=== PATIENT | male | born 1960 | race American Indian/Alaskan Native ===

== ENCOUNTER 2018-05-30 15:35 | Inpatient (IN) | payer OTHER ==
[2018-05-30 20:00] VITALS: BMI 27.4
[2018-05-30] MEDS ORDERED: Promethazine 12.5 mg/10 ml Syrup PO PRN (20:03)
[2018-05-30 21:03] VITALS: RESP 20
[2018-05-30] MEDS: Docusate-Senna 50 mg-8.6 mg Tab PO SCH (21:17)
[2018-05-30] MEDS: Oxycodone/Acetaminophen 5/325 mg Tab PO PRN (21:18)
[2018-05-31] MEDS: Oxycodone/Acetaminophen 5/325 mg Tab PO PRN ×4 (04:11→21:27)
[2018-05-31] MEDS: Enoxaparin 40 mg Syringe SC SCH (10:00)
--- NOTE | 2018-05-31 10:14 | PCM.SURG1 ---
Surgeon's Initial Post Op Note - Surgeon's Notes Surgeon: Michelle Soto MD Flight Kitchen Manager: Gregg Triana PA-C Type of Anesthesia: General Endo Pre-Operative Diagnosis: R hip #1 DJD. #2 synovitis. #3 stiffness/ contracture. #4 MATTHEW Operative Findings: R hip #1 DJD. #2 synovitis. #3 stiffness/contracture. #4 MATTHEW Post-Operative Diagnosis: R hip #1 DJD. #2 synovitis. #3 stiffness/ contracture. #4 MATTHEW Operation Performed: Right hip total hip replacement (jack-lateral approach)
[2018-05-31] MEDS: Docusate-Senna 50 mg-8.6 mg Tab PO SCH (22:04)
[2018-06-01] MEDS: Oxycodone/Acetaminophen 5/325 mg Tab PO PRN ×2 (02:38→08:46)
--- NOTE | 2018-06-01 03:43 | HP ---
Copied To: Haroon Foster MD Attending MD: Haroon Foster MD HISTORY OF PRESENT ILLNESS: The patient is a 58-year-old male with history of osteoarthritis who was admitted to Transitional Care Unit after having right total hip replacement. The patient's postoperative course was uneventful, and he was transferred to transitional care unit at [facility] for deconditioning, physical therapy, and occupational therapy. The patient has been kept on DVT prophylaxis. The patient denied to have any shortness of breath or chest pain at the time of this examination. The patient has the expected pain postoperative for which pain medications have been prescribed. Other review of systems is negative. ALLERGIES: NO KNOWN ALLERGIES. MEDICATIONS: As per MAR reviewed. SOCIAL HISTORY: No history of smoking, ETOH, or substance abuse. FAMILY HISTORY: Noncontributory. PHYSICAL EXAMINATION: GENERAL: The patient is in bed, not in any cardiopulmonary distress. VITAL SIGNS: Blood pressure of 124/73, temperature 98.1, respiratory rate 20, and pulse 92. HEENT: Pupils equal and reactive to light. Normal-appearing mucosa of the conjunctivae, oropharynx, and nasal membrane mucosa. NECK: Supple. No JVD. No carotid bruit. No lymph node. No thyromegaly. CHEST AND LUNGS: Bilateral symmetrical expansion. Good air exchange. No rales, no rhonchi. CARDIOVASCULAR SYSTEM: PMI not localized. S1, S2. No additional sounds. ABDOMEN: Normoactive bowel sounds. No tenderness. No organomegaly. No masses. EXTREMITIES: No cyanosis, no clubbing, no edema. BREAKER UP: Alert, awake, oriented x3. No neurological deficit could be appreciated. ASSESSMENT: 1. Status post right total hip replacement. 2. Osteoarthritis. PLAN: DVT prophylaxis, pain management, physical therapy and occupational therapy. Haroon Foster MD
[2018-06-01 07:39] LABS: ALBUMIN 3.7 g/dL (3.5-5.0); ALT/SGPT 39 U/L (21-72); AST/SGOT 74 U/L (17-59); BLOOD UREA NITROGEN 12 mg/dl (9-20); CALCIUM 9.1 mg/dL (8.4-10.2); GFR AFRICAN-AMERICAN > 60; GFR NON-AFRICAN AMERICAN > 60
[2018-06-01 07:40] LABS: BASO % 0.3 % (0.0-2.0); EOS # 0.3 K/uL (0.0-0.7); EOS % 3.3 % (0.0-4.0); HEMOGLOBIN 10.7 g/dL (12.0-18.0); LYMPH # 1.8 K/uL (1.0-4.3); LYMPH % 21.7 % (20.0-40.0); MEAN CELL VOLUME 88.8 fl (80.0-94.0); MEAN CORPUSCULAR HEMOGLOBIN 30.1 pg (27.0-31.0); MEAN CORPUSCULAR HGB CONC 33.9 g/dL (33.0-37.0); MEAN PLATELET VOLUME 7.6 fl (7.2-11.7); MONO # 0.7 K/uL (0.0-0.8); MONO % 8.9 % (0.0-10.0); NEUT # 5.5 K/uL (1.8-7.0); NEUT % 65.8 % (50.0-75.0); RBC 3.56 Mil/uL (4.40-5.90); RED CELL DISTRIBUTION WIDTH 13.4 % (11.5-14.5); WHITE BLOOD COUNT 8.4 K/uL (4.8-10.8)
[2018-06-01] MEDS: Enoxaparin 40 mg Syringe SC SCH (08:46)
[2018-06-01 15:48] VITALS: BP 150/77; PULSE 87; TEMP 99.7; O2SAT 99
--- NOTE | 2018-06-02 18:00 | DS ---
Copied To: Haroon Foster MD Attending MD: Haroon Foster MD REASON FOR ADMISSION: This is a 58-year-old -[place] male with history of total right hip replacement who was admitted for deconditioning and physical therapy. COURSE OF HOSPITALIZATION: The patient was admitted to transitional care unit at [facility]. The patient was started on both physical therapy and occupational therapy. The patient's pain was controlled on current medications and he was discharged to follow up with his primary care physician as well as Orthopedic Surgery. The patient was also prescribed Lovenox to be continued by his orthopedic surgeon. FINAL DIAGNOSES: 1. Right total hip replacement. 2. Osteoarthritis. Haroon Foster MD
== END 2018-06-01 15:40 | disposition home or self-care (01) | DRG 561 ==
LOC: H.TCU 19:00
PROVIDERS: ADMIT Internal Medicine; ATTEND Internal Medicine
PROC: F07Z9FZ Gait Training/Functional Ambulation Treatment using Assistive, Adaptive, Supportive or Protective Equipment (ICD-10-PCS; principal; 2018-05-30)
PROC: F08Z4FZ Home Management Treatment using Assistive, Adaptive, Supportive or Protective Equipment (ICD-10-PCS; 2018-05-30)
DX: Z47.1 Aftercare following joint replacement surgery (principal); Z96.641 Presence of right artificial hip joint; M16.11 Unilateral primary osteoarthritis, right hip